=== PATIENT | female | born 1940 | race African-American/Black ===

== ENCOUNTER 2017-06-05 14:21 | Emergency (ER) | payer OTHER ==
[~2017-06-05] VITALS: Ht 167.6 cm; Wt 95.4 kg
[~2017-06-05 14:21] MED LIST: ALEVE220 MG PO; ASPIR 8181 M1 PO; CENTRUM SILVER1 EAC3 PO; CITRACAL PLUS1 EAC1 PO; CLONIDINE PO; FUROSEMIDE20 MG PO; GLIPIZIDE10 MG PO; HYDRALAZINE PO; LEVOTHYROXINE25 MCG PO; LIPITOR40 MG PO; METOPROLOL PO; MOBIC7.5 MG PO
[2017-06-05] MEDS ORDERED: XARELTO15 MG PO (18:34)
[2017-06-05 22:19] VITALS: BP 164/76
[2017-06-06] MEDS ORDERED: CLONIDINE HCL0.2 MG PO (11:01)
[2017-06-06] MEDS ORDERED: METOPROLOL SUC100 MG PO (11:02)
[2017-06-06] MEDS ORDERED: HYDRALAZINE HCL50 MG PO (11:03)
== END 2017-06-05 22:20 | disposition home or self-care (01) ==
LOC: EME 14:21
DX: I82.402 Acute embolism and thrombosis of unspecified deep veins of left lower extremity (principal); M25.562 Pain in left knee; I10 Essential (primary) hypertension; E11.9 Type 2 diabetes mellitus without complications; Z79.84 Long term (current) use of oral hypoglycemic drugs; Z86.718 Personal history of other venous thrombosis and embolism
CPT/HCPCS: 73564; 93971; 99281; 99285

== ENCOUNTER 2017-06-06 03:03 | Inpatient (IN) | payer OTHER ==
[~2017-06-06] VITALS: Ht 167.6 cm; Wt 92.9 kg
[~2017-06-06 03:03] MED LIST changes: +XARELTO15 MG PO
[2017-06-06 03:55] LABS: MCH 31.1 PG (29.0-34.0); MCHC 32.3 G/DL (30.0-36.0); MCV 96.4 FL (83-99); MEAN PLAT.VOLUME 10.2 uM^3 (9.5-12.4); PLATELET COUNT 302 K/uL (156-360); RBC DIS.WIDTH-CV 13.7 % (11.8-14.6); RBC DIS.WIDTH-SD 49.2 % (39-53); RED BLOOD COUNT 3.63 M/uL (3.80-5.20); WHITE BLOOD COUNT 8.4 K/uL (4.1-10.2)
[2017-06-06 03:59] LABS: INTER. NORMALIZED RATIO 1.8
[2017-06-06 04:02] LABS: PTT 31.4 SEC (25-37)
[2017-06-06 04:04] LABS: CHLORIDE 109 mEq/L (99-109); POTASSIUM 3.6 mEq/L (3.7-5.4); SODIUM 148 mEq/L (136-147)
[2017-06-06 04:07] LABS: GLUCOSE 134 mg/dL (70-99)
[2017-06-06 04:08] LABS: ANION GAP 15 MEQ/L (2-14)
[2017-06-06 04:09] LABS: TOTAL BILIRUBIN 0.5 mg/dL (0.0-1.0)
[2017-06-06 04:10] LABS: ALKALINE PHOSPHATASE 155 IU/L (3-129); GFR ESTIMATE (CALCULATED) 20 mL/min/
[2017-06-06 04:11] LABS: UREA NITROGEN (BUN) 61 mg/dL (9-23)
[2017-06-06 04:14] LABS: LIPASE 26 U/L (1.0-51.0)
[2017-06-06 04:48] LABS: CREATINE KINASE 416 IU/L (1-294)
[2017-06-06 05:12] LABS: ADD MIUA? YES; BILIRUBIN NEGATIVE; BLOOD SMALL; COLOR YELLOW ((YELLOW)); GLUCOSE (STRIP) NEGATIVE; KETONES NEGATIVE; LEUKOCYTES TRACE; NITRITE POSITIVE; PROTEIN (STRIP) 30; SPECIFIC GRAVITY 1.014 (1.000-1.030); UROBILINOGEN 0.2 MG/DL (0.2-1.0)
[2017-06-06 06:16] VITALS: BP 163/80
[2017-06-06 07:01] LABS: EPITHELIAL CELLS NONE SEEN /HPF; RED BLOOD CELLS RARE /HPF (0-5)
[2017-06-06 07:02] LABS: BACTERIA 3+ /HPF; MUCUS NONE SEEN /LPF; UCUL ADDED? YES
[2017-06-06 07:31] LABS: POINT-OF-CARE METER ID UU14208753
[2017-06-06 07:47] VITALS: BP 166/87
[2017-06-06] MEDS ORDERED: CLONIDINE HCL0.2 MG PO (11:01)
[2017-06-06] MEDS ORDERED: METOPROLOL SUC100 MG PO (11:02)
[2017-06-06] MEDS ORDERED: HYDRALAZINE HCL50 MG PO (11:03)
[2017-06-06 12:22] VITALS: BP 154/82
[2017-06-06 16:29] LABS: POINT-OF-CARE METER ID UU14117124
[2017-06-06 16:30] VITALS: BP 164/82
[2017-06-06 19:40] VITALS: BP 159/74
[2017-06-06 23:31] VITALS: BP 160/84
[2017-06-06 23:41] LABS: UR CREATININE CONCENTRATION 112.1 MG/DL
[2017-06-07] VITALS (7 sets, daily range): BP systolic 114–183; BP diastolic 56–97
[2017-06-07 07:04] LABS: POINT-OF-CARE METER ID UU14117124
[2017-06-07 07:05] LABS: INTER. NORMALIZED RATIO 1.2; PROTHROMBIN TIME 13.5 SEC (10.2-12.9)
[2017-06-07 12:01] LABS: POINT-OF-CARE METER ID UU14117124
[2017-06-07 15:46] LABS: POINT-OF-CARE METER ID UU14117124
[2017-06-07 17:28] LABS: ANION GAP 11 MEQ/L (2-14); CHLORIDE 106 MEQ/L (99-109); POTASSIUM 3.4 MEQ/L (3.7-5.4); SAMPLE HEMOLYSIS CHECK 0; SAMPLE ICTERIC CHECK 0; SAMPLE LIPEMIA CHECK 0; SODIUM 141 MEQ/L (136-147)
[2017-06-07 17:33] LABS: GFR ESTIMATE (CALCULATED) 35 mL/min/; GLUCOSE 139 mg/dL (70-99); UREA NITROGEN (BUN) 35 mg/dL (9-23)
[2017-06-08 03:02] VITALS: BP 143/74
[2017-06-08 06:44] LABS: HEMATOCRIT 31.7 % (36.0-46.0); MCH 31.6 PG (29.0-34.0); MCHC 32.5 G/DL (30.0-36.0); MCV 97.2 FL (83-99); MEAN PLAT.VOLUME 10.6 uM^3 (9.5-12.4); NRBC (%) 0.3 /100 WBC (0-0); PLATELET COUNT 269 K/uL (156-360); RBC DIS.WIDTH-CV 13.9 % (11.8-14.6); RBC DIS.WIDTH-SD 50.1 % (39-53); RED BLOOD COUNT 3.26 M/uL (3.80-5.20); WHITE BLOOD COUNT 7.8 K/uL (4.1-10.2)
[2017-06-08 06:52] LABS: INTER. NORMALIZED RATIO 1.2; PROTHROMBIN TIME 13.7 SEC (10.2-12.9)
[2017-06-08 06:55] LABS: PTT 70.9 SEC (25-37)
[2017-06-08 07:11] LABS: ANION GAP 11 MEQ/L (2-14); CHLORIDE 108 MEQ/L (99-109); GFR ESTIMATE (CALCULATED) 35 mL/min/; GLUCOSE 108 mg/dL (70-99); IRON 77 MCG/DL (35-150); POTASSIUM 3.4 MEQ/L (3.7-5.4); SAMPLE HEMOLYSIS CHECK 0; SAMPLE ICTERIC CHECK 0; SAMPLE LIPEMIA CHECK 0; SODIUM 144 MEQ/L (136-147); UREA NITROGEN (BUN) 32 mg/dL (9-23)
[2017-06-08 07:50] VITALS: BP 194/97
[2017-06-08 07:58] LABS: INTACT PARATHYROID HORMONE 101 pg/mL (10-69)
[2017-06-08 08:04] LABS: FERRITIN 341 NG/ML (10-291)
[2017-06-08 13:28] VITALS: BP 141/73
[2017-06-08 15:11] VITALS: BP 157/81
[2017-06-08 20:00] VITALS: BP 129/61; BP 171/84
[2017-06-08 22:50] VITALS: BP 164/70
[2017-06-09 00:01] VITALS: BP 156/77
[2017-06-09 06:50] LABS: POINT-OF-CARE METER ID UU14117124
[2017-06-09 07:01] LABS: HEMATOCRIT 30.8 % (36.0-46.0); MCH 32.2 PG (29.0-34.0); MCHC 32.5 G/DL (30.0-36.0); MEAN PLAT.VOLUME 10.9 uM^3 (9.5-12.4); NRBC (%) 0.5 /100 WBC (0-0); PLATELET COUNT 269 K/uL (156-360); RBC DIS.WIDTH-CV 13.9 % (11.8-14.6); RBC DIS.WIDTH-SD 50.4 % (39-53); RED BLOOD COUNT 3.11 M/uL (3.80-5.20); WHITE BLOOD COUNT 8.6 K/uL (4.1-10.2)
[2017-06-09 07:16] LABS: INTER. NORMALIZED RATIO 1.2; PROTHROMBIN TIME 13.3 SEC (10.2-12.9)
[2017-06-09 07:18] LABS: PTT 57.5 SEC (25-37)
[2017-06-09 07:29] LABS: ANION GAP 10 MEQ/L (2-14); CHLORIDE 109 MEQ/L (99-109); GFR ESTIMATE (CALCULATED) 35 mL/min/; GLUCOSE 125 mg/dL (70-99); POTASSIUM 3.9 MEQ/L (3.7-5.4); SAMPLE HEMOLYSIS CHECK 0; SAMPLE ICTERIC CHECK 0; SAMPLE LIPEMIA CHECK 0; SODIUM 144 MEQ/L (136-147); UREA NITROGEN (BUN) 32 mg/dL (9-23)
[2017-06-09 07:31] LABS: ALKALINE PHOSPHATASE 114 IU/L (3-129); ANION GAP 11 MEQ/L (2-14); CHLORIDE 109 MEQ/L (99-109); GFR ESTIMATE (CALCULATED) 35 mL/min/; GLUCOSE 126 mg/dL (70-99); POTASSIUM 3.8 MEQ/L (3.7-5.4); SAMPLE HEMOLYSIS CHECK 0; SAMPLE ICTERIC CHECK 0; SAMPLE LIPEMIA CHECK 0; SODIUM 143 MEQ/L (136-147); TOTAL BILIRUBIN 0.3 MG/DL (0.0-1.0); UREA NITROGEN (BUN) 31 mg/dL (9-23)
[2017-06-09 08:27] VITALS: BP 143/52
[2017-06-09 12:00] LABS: POINT-OF-CARE METER ID UU14188577
[2017-06-09 16:40] VITALS: BP 140/54
[2017-06-09 21:47] LABS: POINT-OF-CARE METER ID UU14117124
[2017-06-09 23:27] VITALS: BP 130/72
[2017-06-10 06:59] LABS: POINT-OF-CARE METER ID UU14117124
[2017-06-10 07:21] LABS: HEMATOCRIT 28.7 % (36.0-46.0); MCH 31.6 PG (29.0-34.0); MCHC 32.8 G/DL (30.0-36.0); MCV 96.6 FL (83-99); MEAN PLAT.VOLUME 10.8 uM^3 (9.5-12.4); NRBC (%) 0.7 /100 WBC (0-0); PLATELET COUNT 273 K/uL (156-360); RBC DIS.WIDTH-CV 14.1 % (11.8-14.6); RBC DIS.WIDTH-SD 50.2 % (39-53); RED BLOOD COUNT 2.97 M/uL (3.80-5.20); WHITE BLOOD COUNT 8.8 K/uL (4.1-10.2)
[2017-06-10 07:33] LABS: INTER. NORMALIZED RATIO 1.3; PROTHROMBIN TIME 14.5 SEC (10.2-12.9)
[2017-06-10 07:36] LABS: PTT 58.6 SEC (25-37)
[2017-06-10 07:49] LABS: ANION GAP 12 MEQ/L (2-14); CHLORIDE 110 MEQ/L (99-109); GFR ESTIMATE (CALCULATED) 40 mL/min/; GLUCOSE 127 mg/dL (70-99); POTASSIUM 3.9 MEQ/L (3.7-5.4); SAMPLE HEMOLYSIS CHECK 0; SAMPLE ICTERIC CHECK 0; SAMPLE LIPEMIA CHECK 0; SODIUM 145 MEQ/L (136-147); UREA NITROGEN (BUN) 26 mg/dL (9-23)
[2017-06-10 07:54] LABS: ALKALINE PHOSPHATASE 126 IU/L (3-129); ANION GAP 11 MEQ/L (2-14); CHLORIDE 111 MEQ/L (99-109); GFR ESTIMATE (CALCULATED) 40 mL/min/; GLUCOSE 125 mg/dL (70-99); POTASSIUM 3.8 MEQ/L (3.7-5.4); SAMPLE HEMOLYSIS CHECK 0; SAMPLE ICTERIC CHECK 0; SAMPLE LIPEMIA CHECK 0; SODIUM 144 MEQ/L (136-147); TOTAL BILIRUBIN 0.3 MG/DL (0.0-1.0); UREA NITROGEN (BUN) 26 mg/dL (9-23)
[2017-06-10 08:01] VITALS: BP 146/84
[2017-06-10 11:34] LABS: POINT-OF-CARE METER ID UU14188577
[2017-06-10 15:11] VITALS: BP 142/80
[2017-06-10 15:56] LABS: POINT-OF-CARE METER ID UU14188577
[2017-06-10 21:37] LABS: POINT-OF-CARE METER ID UU14117124
[2017-06-11 00:22] VITALS: BP 138/67
[2017-06-11 07:01] LABS: INTER. NORMALIZED RATIO 1.4; PROTHROMBIN TIME 15.8 SEC (10.2-12.9)
[2017-06-11 07:04] LABS: PTT 52.2 SEC (25-37)
[2017-06-11 08:46] VITALS: BP 170/80
[2017-06-11 11:38] LABS: POINT-OF-CARE METER ID UU14117124
[2017-06-11 11:49] VITALS: BP 150/70
[2017-06-11] MEDS ORDERED: THERAGRAN1 TABLET PO (12:30)
[2017-06-11] MEDS ORDERED: ACETAMINOPHN-T1 EACH PO (12:31)
[2017-06-11] MEDS ORDERED: LOVENOX100 MG/1 M SC (13:39)
[2017-06-11] MEDS ORDERED: COUMADIN1 MG PO (13:39)
[2017-06-11] MEDS ORDERED: COUMADIN7.5 MG PO (14:18)
[2017-06-11] MEDS ORDERED: CEFTRIAXONE1 G1 IM (14:33)
== END 2017-06-11 15:26 | DRG 300 ==
LOC: EME 03:03 → EDOF 04:55 → 3EAST 04:55 → ENRESERV 04:57 → 3EAST 05:57
PROVIDERS: Emergency Medicine; Family Medicine; Internal Medicine; Internal Medicine Nephrology
DX: I82.402 Acute embolism and thrombosis of unspecified deep veins of left lower extremity (principal); N17.9 Acute kidney failure, unspecified; N39.0 Urinary tract infection, site not specified; E87.0 Hyperosmolality and hypernatremia; E87.6 Hypokalemia; E86.0 Dehydration; E78.5 Hyperlipidemia, unspecified; I13.0 Hypertensive heart and chronic kidney disease with heart failure and stage 1 through stage 4 chronic kidney disease, or unspecified chronic kidney disease; I50.9 Heart failure, unspecified; E11.21 Type 2 diabetes mellitus with diabetic nephropathy; E11.22 Type 2 diabetes mellitus with diabetic chronic kidney disease; N18.3 Chronic kidney disease, stage 3 (moderate); G89.29 Other chronic pain; D64.9 Anemia, unspecified; E03.9 Hypothyroidism, unspecified; M17.9 Osteoarthritis of knee, unspecified; E66.9 Obesity, unspecified; Z79.4 Long term (current) use of insulin; Z68.33 Body mass index [BMI] 33.0-33.9, adult; Z79.82 Long term (current) use of aspirin
CPT/HCPCS: 71010; 73560; 73564; 76770; 80053; 80069; 81003; 82306; 82550; 82570; 82728; 82948; 83540; 83690; 83970; 84156; 84443; 84466; 85027; 85610; 85730; 87077; 87086; 87186; 93971; 97530 GO; 97530 GP; 99281; 99285; J0696; J1650; J1815; J7030; J7050

== ENCOUNTER 2017-06-21 04:34 | Emergency (ER) | payer OTHER ==
[~2017-06-21] VITALS: Ht 167.6 cm; Wt 96.4 kg
[~2017-06-21 04:34] MED LIST changes: +ACETAMINOPHN-T1 EACH PO; +CEFTRIAXONE1 G1 IM; +CLONIDINE HCL0.2 MG PO; +COUMADIN1 MG PO; +COUMADIN7.5 MG PO; +HYDRALAZINE HCL50 MG PO; +LOVENOX100 MG/1 M SC; +METOPROLOL SUC100 MG PO; +THERAGRAN1 TABLET PO
[2017-06-21 07:15] LABS: HEMATOCRIT 28.6 % (36.0-46.0); MCH 30.4 PG (29.0-34.0); MCHC 31.1 G/DL (30.0-36.0); MCV 97.6 FL (83-99); MEAN PLAT.VOLUME 10.4 uM^3 (9.5-12.4); NRBC (%) 0.3 /100 WBC (0-0); PLATELET COUNT 506 K/uL (156-360); RBC DIS.WIDTH-CV 14.9 % (11.8-14.6); RBC DIS.WIDTH-SD 53.3 % (39-53); RED BLOOD COUNT 2.93 M/uL (3.80-5.20); WHITE BLOOD COUNT 8.7 K/uL (4.1-10.2)
[2017-06-21 07:25] LABS: CHLORIDE 107 mEq/L (99-109); POTASSIUM 4.6 mEq/L (3.7-5.4); SODIUM 143 mEq/L (136-147)
[2017-06-21 07:26] LABS: GLUCOSE 176 mg/dL (70-99)
[2017-06-21 07:28] LABS: ANION GAP 10 MEQ/L (2-14)
[2017-06-21 07:30] LABS: GFR ESTIMATE (CALCULATED) 43 mL/min/
[2017-06-21 07:31] LABS: UREA NITROGEN (BUN) 29 mg/dL (9-23)
[2017-06-21 07:33] LABS: URIC ACID 9.1 mg/dL (3.1-9.2)
[2017-06-21] MEDS ORDERED: MS CONTIN,ORAMO15 M1 PO (09:06)
[2017-06-21 10:59] VITALS: BP 178/95
== END 2017-06-21 10:59 ==
LOC: EME → EDBD 04:34 → EME 04:34
PROVIDERS: Emergency Medicine
DX: M19.90 Unspecified osteoarthritis, unspecified site (principal); I12.9 Hypertensive chronic kidney disease with stage 1 through stage 4 chronic kidney disease, or unspecified chronic kidney disease; N18.9 Chronic kidney disease, unspecified; D64.9 Anemia, unspecified; E11.9 Type 2 diabetes mellitus without complications; Z86.718 Personal history of other venous thrombosis and embolism
CPT/HCPCS: 80048; 84550; 85027; J3010

== ENCOUNTER 2018-04-11 18:31 | Inpatient (IN) | payer OTHER ==
[~2018-04-11] VITALS: Ht 167.6 cm; Wt 90.8 kg
[~2018-04-11 18:31] MED LIST changes: +ALLOPURINOL100 MG PO; +CITRATE OF MAG296 ML PO; +ERGOCALCIF50000 UNIT PO; +FLEET ENEMA-AD118 ML PR; +LANTUS 3 M100 UNITS1 SC; +MILK OF MAGN PO; +MIRALAX17 GM PO; +MORPHINE CON20 MG/M1 PO; +MORPHINE SULFAT15 MG PO; +MS CONTIN,ORAMO15 M1 PO; +NOVOLOG PE100 UNITS/ SC; +PREDNISONE5 MG PO; +SENOKOT S,PE1 TABLET PO; +WARFARIN SODIUM1 MG PO
[2018-04-11 19:32] LABS: HEMATOCRIT 36.6 % (36.0-46.0); HEMOGLOBIN 12.6 G/DL (11.9-15.5); MCHC 34.4 G/DL (30.0-36.0); MCV 92.9 FL (83-99); PLATELET COUNT 234 K/uL (156-360); RBC DIS.WIDTH-CV 13.7 % (11.8-14.6); RBC DIS.WIDTH-SD 46.5 % (39-53); RED BLOOD COUNT 3.94 M/uL (3.80-5.20); WHITE BLOOD COUNT 5.7 K/uL (4.1-10.2)
[2018-04-11 19:39] LABS: INTER. NORMALIZED RATIO 1.4
[2018-04-11 19:42] LABS: PTT 28.6 SEC (25-37)
[2018-04-11 19:44] LABS: ALBUMIN 3.6 g/dL (3.2-4.8); CHLORIDE 108 mEq/L (99-109); POTASSIUM 4.5 mEq/L (3.7-5.4); SODIUM 143 mEq/L (136-147)
[2018-04-11 19:46] LABS: GLUCOSE 160 mg/dL (70-99); TOTAL PROTEIN 7.5 g/dL (6.4-8.3)
[2018-04-11 19:48] LABS: TOTAL BILIRUBIN 0.5 mg/dL (0.0-1.0)
[2018-04-11 19:50] LABS: ALKALINE PHOSPHATASE 82 IU/L (3-129); CREATININE 2.4 mg/dL (0.6-1.3); GFR ESTIMATE (CALCULATED) 25 mL/min/
[2018-04-11 19:51] LABS: UREA NITROGEN (BUN) 55 mg/dL (9-23)
[2018-04-11 19:52] LABS: AST (GOT) 19 IU/L (2-34)
[2018-04-11 19:53] LABS: ALT (GPT) 13 IU/L (3-49)
[2018-04-11 23:50] VITALS: BP 175/83
[2018-04-12 00:15] VITALS: BP 175/83
[2018-04-12] MEDS ORDERED: PROTONIX40 MG PO (01:58)
[2018-04-12] MEDS ORDERED: ERGOCALCIF50000 UNIT PO (02:00)
[2018-04-12] MEDS ORDERED: SENNA-S TABLET1 EACH PO (02:01)
[2018-04-12] MEDS ORDERED: CATAPRES0.2 MG PO (02:02)
[2018-04-12] MEDS ORDERED: MULTIPLE VITAM1 EAC1 PO (02:02)
[2018-04-12] MEDS ORDERED: TOPROL XL100 MG PO (02:03)
[2018-04-12] MEDS ORDERED: LEVOTHYROXINE25 MCG PO (02:04)
[2018-04-12] MEDS ORDERED: MILK OF MAGN PO (02:05)
[2018-04-12] MEDS ORDERED: DULCOLAX10 MG PR (02:06)
[2018-04-12] MEDS ORDERED: CITRATE OF MAG296 ML PO (02:07)
[2018-04-12] MEDS ORDERED: TYLENOL REGULA325 MG PO (02:08)
[2018-04-12 07:15] LABS: BASOPHIL (%) 0.9 % (0-1); BASOPHIL COUNT 0.1 K/uL (0-0.1); EOSINOPHIL COUNT 0.4 K/uL (0-0.3); HEMATOCRIT 33.6 % (36.0-46.0); HEMOGLOBIN 11.1 G/DL (11.9-15.5); IMMATURE GRANULOCYTE (%) 0.3 % (0.0-0.7); LYMPHOCYTE (%) 33.3 % (15-42); LYMPHOCYTE COUNT 2.2 K/uL (1.0-2.8); MCH 31.1 PG (29.0-34.0); MCV 94.1 FL (83-99); MONOCYTE (%) 6.8 % (3-12); MONOCYTE COUNT 0.4 K/uL (0-0.8); NEUTROPHIL (%) 52.7 % (45-76); NEUTROPHIL COUNT 3.4 K/uL (1.8-6.4); PLATELET COUNT 221 K/uL (156-360); RBC DIS.WIDTH-SD 47.8 % (39-53); RED BLOOD COUNT 3.57 M/uL (3.80-5.20); WHITE BLOOD COUNT 6.5 K/uL (4.1-10.2)
[2018-04-12 08:25] VITALS: BP 122/66
[2018-04-12 11:12] VITALS: BP 115/64
[2018-04-12 14:42] LABS: INTER. NORMALIZED RATIO 1.4
[2018-04-12 14:47] LABS: PTT 61.2 SEC (25-37)
[2018-04-12 16:18] VITALS: BP 117/63
[2018-04-12 19:22] VITALS: BP 112/78
[2018-04-12 20:48] LABS: INTER. NORMALIZED RATIO 1.4
[2018-04-12 20:51] LABS: PTT 36.7 SEC (25-37)
[2018-04-12 23:45] VITALS: BP 142/72
[2018-04-13 03:26] VITALS: BP 160/82
[2018-04-13 03:57] LABS: HEMATOCRIT 33.1 % (36.0-46.0); HEMOGLOBIN 11.1 G/DL (11.9-15.5); MCH 31.7 PG (29.0-34.0); MCHC 33.5 G/DL (30.0-36.0); MCV 94.6 FL (83-99); PLATELET COUNT 211 K/uL (156-360); RBC DIS.WIDTH-CV 14.3 % (11.8-14.6); RBC DIS.WIDTH-SD 49.4 % (39-53); WHITE BLOOD COUNT 5.5 K/uL (4.1-10.2)
[2018-04-13 04:10] LABS: CHLORIDE 108 mEq/L (99-109); POTASSIUM 4.4 mEq/L (3.7-5.4); SODIUM 142 mEq/L (136-147)
[2018-04-13 04:11] LABS: GLUCOSE 169 mg/dL (70-99)
[2018-04-13 04:15] LABS: CREATININE 2.3 mg/dL (0.6-1.3); GFR ESTIMATE (CALCULATED) 26 mL/min/
[2018-04-13 04:16] LABS: UREA NITROGEN (BUN) 67 mg/dL (9-23)
[2018-04-13 04:42] LABS: INTER. NORMALIZED RATIO 1.9
[2018-04-13 07:15] VITALS: BP 165/76
[2018-04-13 11:19] VITALS: BP 135/69
[2018-04-13 15:15] VITALS: BP 114/59
[2018-04-13 19:15] VITALS: BP 127/62
[2018-04-13 23:10] VITALS: BP 144/65
[2018-04-14 02:51] VITALS: BP 160/75
[2018-04-14 06:48] LABS: INTER. NORMALIZED RATIO 1.3
[2018-04-14 07:36] VITALS: BP 162/71
[2018-04-14 09:42] LABS: CREATININE 1.7 MG/DL (0.6-1.3)
[2018-04-14 11:07] VITALS: BP 142/65
[2018-04-14 16:19] VITALS: BP 133/88
[2018-04-14 19:40] VITALS: BP 123/59
[2018-04-14 23:31] VITALS: BP 130/93
[2018-04-15 04:15] VITALS: BP 152/68
[2018-04-15 05:54] LABS: HEMATOCRIT 31.6 % (36.0-46.0); HEMOGLOBIN 10.2 G/DL (11.9-15.5); MCHC 32.3 G/DL (30.0-36.0); PLATELET COUNT 211 K/uL (156-360); RBC DIS.WIDTH-CV 14.4 % (11.8-14.6); RBC DIS.WIDTH-SD 50.4 % (39-53); RED BLOOD COUNT 3.29 M/uL (3.80-5.20); WHITE BLOOD COUNT 5.2 K/uL (4.1-10.2)
[2018-04-15 06:01] LABS: INTER. NORMALIZED RATIO 1.3
[2018-04-15 06:04] LABS: PTT 73.6 SEC (25-37)
[2018-04-15 06:22] LABS: ALBUMIN 3.1 G/DL (3.2-4.8); C-REACTIVE PROTEIN 17.4 MG/L (0-10); CHLORIDE 110 MEQ/L (99-109); CREATININE 1.5 MG/DL (0.6-1.3); GFR ESTIMATE (CALCULATED) 43 mL/min/; GLUCOSE 155 mg/dL (70-99); PHOSPHORUS 3.2 mg/dL (2.5-4.9); SODIUM 141 MEQ/L (136-147); UREA NITROGEN (BUN) 44 mg/dL (9-23)
[2018-04-15 06:49] LABS: C4 COMPLEMENT 38 MG/DL (10-40)
[2018-04-15 07:00] LABS: ERTH.SED.RATE 61 MM/HR (0-30)
[2018-04-15 07:52] LABS: APPEARANCE CLOUDY ((CLEAR)); BILIRUBIN NEGATIVE; BLOOD NEGATIVE; COLOR YELLOW ((YELLOW)); GLUCOSE (STRIP) NEGATIVE; KETONES NEGATIVE; LEUKOCYTES SMALL; NITRITE NEGATIVE; PROTEIN (STRIP) 30; SPECIFIC GRAVITY 1.016 (1.000-1.030); UROBILINOGEN 0.2 MG/DL (0.2-1.0)
[2018-04-15 08:12] LABS: BACTERIA RARE /HPF; EPITHELIAL CELLS 2+ /HPF; MUCUS NONE SEEN /LPF
[2018-04-15 08:22] VITALS: BP 176/78
[2018-04-15 11:10] VITALS: BP 142/72
[2018-04-15 12:08] LABS: CREATININE 1.4 MG/DL (0.6-1.3); VANCOMYCIN, TROUGH 15.8 MCG/ML (10-20)
[2018-04-15 15:26] VITALS: BP 137/55
[2018-04-15 19:31] VITALS: BP 187/80
[2018-04-16] VITALS (7 sets, daily range): BP systolic 142–166; BP diastolic 67–81
[2018-04-16 07:02] LABS: INTER. NORMALIZED RATIO 1.3
[2018-04-16 07:04] LABS: PTT 79.1 SEC (25-37)
[2018-04-16 07:20] LABS: ALBUMIN 3.2 G/DL (3.2-4.8); CHLORIDE 109 MEQ/L (99-109); CREATININE 1.3 MG/DL (0.6-1.3); GFR ESTIMATE (CALCULATED) 51 mL/min/; GLUCOSE 152 mg/dL (70-99); PHOSPHORUS 3.7 mg/dL (2.5-4.9); POTASSIUM 4.1 MEQ/L (3.7-5.4); SODIUM 142 MEQ/L (136-147); UREA NITROGEN (BUN) 37 mg/dL (9-23)
[2018-04-16 13:28] LABS: IRON 100 MCG/DL (35-150); TRANSFERRIN (TIBC) 173.1 mg/dL (215-380); TRANSFERRIN SATUR. 58 % (20-55)
[2018-04-17 04:54] VITALS: BP 142/67
[2018-04-17 06:34] LABS: HEMOGLOBIN 10.3 G/DL (11.9-15.5); MCH 30.7 PG (29.0-34.0); MCHC 32.2 G/DL (30.0-36.0); MCV 95.5 FL (83-99); PLATELET COUNT 219 K/uL (156-360); RBC DIS.WIDTH-CV 14.6 % (11.8-14.6); RED BLOOD COUNT 3.35 M/uL (3.80-5.20); WHITE BLOOD COUNT 5.5 K/uL (4.1-10.2)
[2018-04-17 06:42] LABS: INTER. NORMALIZED RATIO 1.3
[2018-04-17 06:44] LABS: PTT 65.9 SEC (25-37)
[2018-04-17 06:59] LABS: ALBUMIN 3.1 G/DL (3.2-4.8); CHLORIDE 111 MEQ/L (99-109); CREATININE 1.3 MG/DL (0.6-1.3); GFR ESTIMATE (CALCULATED) 51 mL/min/; GLUCOSE 150 mg/dL (70-99); GLUCOSE 157 mg/dL (70-99); PHOSPHORUS 3.2 mg/dL (2.5-4.9); POTASSIUM 4.3 MEQ/L (3.7-5.4); POTASSIUM 4.4 MEQ/L (3.7-5.4); SODIUM 141 MEQ/L (136-147); SODIUM 142 MEQ/L (136-147); UREA NITROGEN (BUN) 34 mg/dL (9-23)
[2018-04-17 08:24] VITALS: BP 172/80
[2018-04-17 08:33] LABS: INTACT PARATHYROID HORMONE 32 pg/mL (10-69)
[2018-04-17 11:52] VITALS: BP 125/70
[2018-04-17 14:10] LABS: Neutrophil Cytoplasmic Aby Negative (Negative)
[2018-04-17 16:54] VITALS: BP 157/71
[2018-04-17 20:09] VITALS: BP 176/81
[2018-04-17 23:39] VITALS: BP 176/92
[2018-04-18 07:28] VITALS: BP 160/71
[2018-04-18 08:01] LABS: HEMATOCRIT 31.9 % (36.0-46.0); HEMOGLOBIN 10.4 G/DL (11.9-15.5); MCH 31.1 PG (29.0-34.0); MCHC 32.6 G/DL (30.0-36.0); MCV 95.5 FL (83-99); NRBC (%) 0.4 /100 WBC (0-0); PLATELET COUNT 234 K/uL (156-360); RBC DIS.WIDTH-CV 14.8 % (11.8-14.6); RBC DIS.WIDTH-SD 51.4 % (39-53); RED BLOOD COUNT 3.34 M/uL (3.80-5.20); WHITE BLOOD COUNT 4.5 K/uL (4.1-10.2)
[2018-04-18 08:09] LABS: INTER. NORMALIZED RATIO 1.4
[2018-04-18 08:12] LABS: PTT 55.8 SEC (25-37)
[2018-04-18 08:27] LABS: CHLORIDE 112 MEQ/L (99-109); GFR ESTIMATE (CALCULATED) > 59 mL/min/; GLUCOSE 164 mg/dL (70-99); POTASSIUM 4.3 MEQ/L (3.7-5.4); SODIUM 143 MEQ/L (136-147); UREA NITROGEN (BUN) 29 mg/dL (9-23)
[2018-04-18] MEDS ORDERED: COUMADIN1 MG PO (08:40)
[2018-04-18] MEDS ORDERED: SENNA LAX8.6 MG PO (08:41)
[2018-04-18] MEDS ORDERED: NOVOLOG 10100 UNITS/ SC (08:43)
[2018-04-18 10:36] VITALS: BP 146/69
[2018-04-18 15:55] VITALS: BP 162/70
[2018-04-18 20:41] VITALS: BP 170/84
[2018-04-18 23:43] VITALS: BP 175/81
[2018-04-19 04:40] VITALS: BP 172/84
[2018-04-19 06:34] LABS: INTER. NORMALIZED RATIO 1.7
[2018-04-19 07:31] VITALS: BP 166/75
[2018-04-19 10:59] VITALS: BP 158/73
[2018-04-19 15:55] VITALS: BP 129/62
[2018-04-19 20:17] VITALS: BP 168/79
[2018-04-20 00:46] VITALS: BP 149/71
[2018-04-20 04:44] VITALS: BP 165/77
[2018-04-20 07:50] LABS: INTER. NORMALIZED RATIO 1.9
[2018-04-20 07:53] LABS: PTT 78.8 SEC (25-37)
[2018-04-20 08:05] VITALS: BP 173/79
[2018-04-20 10:30] VITALS: BP 181/86
[2018-04-20 11:27] VITALS: BP 161/74
== END 2018-04-20 11:43 | DRG 300 ==
LOC: EME 18:31 → EDOF 22:47 → 3EAST 22:47 → ENRESERV 22:51 → 3EAST 23:46
PROVIDERS: Family Medicine; Internal Medicine; Internal Medicine Nephrology; Nurse Practitioner Family
DX: I82.513 Chronic embolism and thrombosis of femoral vein, bilateral (principal); L03.116 Cellulitis of left lower limb; L03.115 Cellulitis of right lower limb; I12.9 Hypertensive chronic kidney disease with stage 1 through stage 4 chronic kidney disease, or unspecified chronic kidney disease; N18.3 Chronic kidney disease, stage 3 (moderate); R79.1 Abnormal coagulation profile; I82.543 Chronic embolism and thrombosis of tibial vein, bilateral; I82.533 Chronic embolism and thrombosis of popliteal vein, bilateral; E11.22 Type 2 diabetes mellitus with diabetic chronic kidney disease; E78.5 Hyperlipidemia, unspecified; E03.9 Hypothyroidism, unspecified; E55.9 Vitamin D deficiency, unspecified; M17.11 Unilateral primary osteoarthritis, right knee; M17.12 Unilateral primary osteoarthritis, left knee; E11.65 Type 2 diabetes mellitus with hyperglycemia; L60.2 Onychogryphosis; G43.909 Migraine, unspecified, not intractable, without status migrainosus; Z90.710 Acquired absence of both cervix and uterus; Z87.891 Personal history of nicotine dependence; Z79.4 Long term (current) use of insulin; Z99.3 Dependence on wheelchair; Z87.11 Personal history of peptic ulcer disease
CPT/HCPCS: 73502; 73560; 80048; 80048 91; 80053; 80069; 80202; 81003; 82306; 82565; 82948; 83540; 83970; 84466; 85025; 85027; 85610; 85651; 85730; 86021 90; 86038; 86140; 86160; 86235; 87641; 89190; 93005; 93970; 97530 GP; 99281; 99285; A6214; J0696; J1815; J3370; J7050